=== PATIENT | female | born 1955 | race Caucasian/White ===

== ENCOUNTER 2017-08-06 06:27 | Observation (INO) | payer OTHER ==
[2017-08-01 15:53] VITALS: BMI 37.0
[~2017-08-06] VITALS: Ht 160 cm; Wt 96.3 kg
[2017-08-06] VITALS (12 sets, daily range): BP systolic 102–141; BP diastolic 66–78; PULSE 78–90; TEMP 36.3–36.9; O2SAT 90–94; Ht 160 cm; Wt 96.3 kg
[~2017-08-06 06:27] MED LIST: ASPI81TA28 PO; CARV6.25 PO; CEFAZOLIN 1000MG IV PUSH 5 ML IV SCH; CLINDAMYCIN 600 MG/54 ML D5W IV SCH; FURO-85 PO; LACTATED RINGER'S 1000ML 1,000 ML IV SCH; LEVO25TA5 PO; LISI-729 PO; PROPOFOL IV EMULSION 10 MG/ML 100 ML VIAL IV ONE; VANCOMYCIN 1GM/270ML NSS 270 ML IV SCH
[2017-08-06] MEDS ORDERED: BACITRACIN 50000 UNIT VIAL ONE (07:40)
[2017-08-06] MEDS ORDERED: BUPIVACAINE 0.5 % 5 MG/1 ML MPF 30ML VIAL ONE (07:40)
[2017-08-06] MEDS ORDERED: LIDOCAINE HCL 1% 20 ML VIAL ONE (07:40)
[2017-08-06] MEDS ORDERED: MIDAZOLAM HCL 1 MG/ML 2ML VIAL ONE (07:48)
[2017-08-06] MEDS ORDERED: FENTANYL CITRATE INJ 50 MCG/1 ML 2 ML VIAL ONE ×2 (07:48→10:04)
[2017-08-06] MEDS ORDERED: EpHEDrine SULFATE 50MG/5ML SYR ONE ×2 (07:55→11:04)
[2017-08-06] MEDS ORDERED: PHENYLEPHRINE 100MCG/ML 5ML SYR ONE ×2 (07:55→09:59)
[2017-08-06] MEDS ORDERED: PROPOFOL IV EMULSION 10 MG/ML 20 ML VIAL IV ONE (07:55)
[2017-08-06] MEDS ORDERED: LIDOCAINE HCL 2% 2 ML VIAL (20MG/ML) ONE (07:55)
--- NOTE | 2017-08-06 08:17 | History & Physical Bridge Note ---
H&P Re-Evaluation Bridge Note: I have examined the patient, reviewed the History & Physical and in the interval since the performance of the History & Physical I have noted the following changes of clinical significance: No changes noted
--- NOTE | 2017-08-06 12:16 | [facility] Post Operative Brief Note ---
Immediate Operative Summary Operative Date Aug 06, 2017. Pre-Operative Diagnosis nicm, lbbb, chronic systolic HF, NYHA Class III Post-Operative Diagnosis same Procedure(s) Performed biventricular ICD rate responsive with peripheral venogram Surgeon tristan loza Supervisor Warping Department Surgeon(s) none Estimated Blood Loss 10cc Findings see official report Fluids (cc crystalloids) 400cc Specimens none Drains none Anesthesia 4mg versed, 200mcg fentantyl, 1400mg propofol Complication(s) None Disposition PCU
--- NOTE | 2017-08-06 12:19 | Discharge Instructions ---
Discharge Instructions Date of Service Aug 06, 2017. Admission Reason for Admission: Cardiomyopathy W/Anesthesia Discharge Discharge Diagnosis / Problem: nicm, lbbb, chronic systolic hf-nyha class iii Discharge Goals Goal(s): Improve function Activity Recommendations Activity Limitations: as noted below Lifting Limitations: no more than 10 pounds (do not lift the left elbow over the left shoulder for 1 month; do not lift more than 10 pounds with the left arm for 2 weeks) Shower/Bathe: tomorrow Driving or Machine Use: resume 1 day after discharge . Instructions / Follow-Up Instructions / Follow-Up ACTIVITY RECOMMENDATIONS: * Do not raise affected arm over head for 4 weeks. SPECIAL CARE INSTRUCTIONS: * If bleeding occurs, apply direct pressure to area for 5 minutes. * Call your doctor if you have severe pain, fever, drainage or bleeding at site. * Keep dry for 24 hours. * Keep any scheduled doctor's appointment. * Implant Card - hand held device with website information given. SKIN IRRITATION: * You may experience some redness and/or swelling in the area where radiation was administered. If any skin irritation occurs, please contact your family physician. FOLLOW UP VISIT: Keep any scheduled doctor appointments. Current Hospital Diet Patient's current hospital diet: AHA Diet (Heart Healthy), Low Sodium Diet (2gm Na) Discharge Diet Recommended Diet: AHA Diet (Heart Healthy), Low Sodium Diet (2gm Na) Procedures Procedures Performed: biventricular ICD rate responsive with peripheral venogram Pending Studies Studies pending at discharge: no Medical Emergencies . Who to Call and When: Medical Emergencies: If at any time you feel your situation is an emergency, please call 911 immediately. . Non-Emergent Contact Non-Emergency issues call your: Auto Clocks Repairer . . "Provider Documentation" section prepared by Ashley Pacheco. . VTE Core Measure Inpt VTE Proph given/why not?: Caryl Fernandez
--- NOTE | 2017-08-06 12:19 | Anesthesiology Progress Note ---
Anesthesia Post Op Note Date & Time Aug 06, 2017 at 12:19 Vital Signs Pain Intensity: 0 Vital Signs Past 12 Hours Date Time Temp Pulse Resp B/P (MAP) Pulse Ox O2 Delivery O2 Flow Rate FiO2 08/06/17 12:10 90 16 120/71 (87) 95 Nasal Cannula 2 08/06/17 06:53 36.7 80 20 134/70 (91) 92 Room Air Notes Mental Status: alert / awake / arousable, participated in evaluation Pt Amnestic to Procedure: Yes Nausea / Vomiting: adequately controlled Pain: adequately controlled Airway Patency, RR, SpO2: stable & adequate BP & HR: stable & adequate Hydration State: stable & adequate Anesthetic Complications: no major complications apparent
--- NOTE | 2017-08-06 12:23 | Discharge Summary ---
Discharge Summary Date of Service Aug 06, 2017. Discharge Summary Admission Date: 08/06/2017 Discharge Date: Aug 07, 2017 Discharge Disposition: Home Principal Diagnosis: nicm Secondary Diagnoses/Problems: lbbb, chronic systolic HF, NYHA Class III, HTN, HLD Procedures: biventricular ICD with peripheral venogram Medication Reconciliation New Medications: Acetaminophen (Mapap) 325 Mg Tab 650 MG PO Q4H PRN for Mild pain (1-3 on pain scale), #60 TAB 1 Refill Continued Medications: Aspirin (Aspirin Ec) 81 Mg Tab 81 MG PO QAM Carvedilol (Coreg) 6.25 Mg Tab 6.25 MG PO QAM, TAB Furosemide (Lasix) 20 Mg Tab 20 MG PO QPM, TAB Levothyroxine Sodium (Levothyroxine Sodium) 25 Mcg Tab 1 TAB PO QAM for 30 Days, #30 TAB 5 Refills Lisinopril (Prinivil) 5 Mg Tab 5 MG PO QAM, TAB Admission Information Physical Exam (per Admitting): aaox3, NAD NC/AT, EOMI Supple, No JVD Nrl S1/S2, no murmur CTA b/l no w/r/r soft, nt/nd no edema b/l LE no focal deficits skin intact Hospital Course Pt admitted for elective BiVentricular ICD due to NICM, LBBB, and chronic systolic heart failure. Pt underwent procedure without any complications and monitored overnight. She was discharged home following morning in a stable condition Addendum 08/07/[address] Villela: Impression: 61-year-old female 1. Status post Medtronic biventricular pacemaker AICD on 08/06/17 2. History of nonischemic cardiomyopathy with moderate left ventricle systolic dysfunction, ejection fraction in the range of 30-34% on most recent testing in May 2017, in setting of left bundle branch block, and near card association functional class III systolic heart failure. Plan: Patient stable for discharge status post device. Patient schedule for device check 08/13/2017 9:00 AM [facility] [place] Follow up with Primary nurse general duty Dr Coronado, appointment to be arranged at time of device check. Total time spent on discharge = 30 minutes This includes examination of the patient, discharge planning, medication reconciliation, and communication with other providers. Discharge Instructions ACTIVITY RECOMMENDATIONS: * Do not raise affected arm over head for 4 weeks. SPECIAL CARE INSTRUCTIONS: * If bleeding occurs, apply direct pressure to area for 5 minutes. * Call your doctor if you have severe pain, fever, drainage or bleeding at site. * Keep dry for 24 hours. * Keep any scheduled doctor's appointment. * Implant Card - hand held device with website information given. SKIN IRRITATION: * You may experience some redness and/or swelling in the area where radiation was administered. If any skin irritation occurs, please contact your family physician. FOLLOW UP VISIT: Keep any scheduled doctor appointments.
[2017-08-06] MEDS ORDERED: ACETAMINOPHEN 325 MG TAB PO PRN (12:30)
[2017-08-06] MEDS ORDERED: ATROPINE SULFATE 0.1 MG/ML 5ML SYR IV PRN (12:30)
[2017-08-06] MEDS ORDERED: EpHEDrine SULFATE INJ 50 MG/ML AMP IV PRN (12:30)
[2017-08-06] MEDS ORDERED: IV FLUIDS COMPLETED PRN (13:45)
[2017-08-06] MEDS: OXYCODONE/ACETAMINOPHEN 5-325 TAB PO PRN ×2 (13:55→17:58)
--- NOTE | 2017-08-06 16:12 | OPERATIVE REPORT ---
DATE OF OPERATION: 08/06/2017 PREOPERATIVE DIAGNOSES: Nonischemic cardiomyopathy, left bundle branch block, chronic systolic heart failure, [place] Heart Association class 3. POSTOPERATIVE DIAGNOSIS: Same. SURGEON: Ashley Pacheco DO SANITATION INSPECTOR: None. ANESTHESIA: Monitored anesthetic care administered via anesthesiology. Total of 4 mg of Versed, 200 mcg of fentanyl and 1400 mg of propofol. IV FLUIDS: 400 mL. ANTIBIOTICS: 600 mL of clindamycin. IV CONTRAST: 40 mL. BLOOD LOSS: 10 mL COMPLICATIONS: None. CONDITION: Stable. URINE OUTPUT: Not applicable. SPECIMENS: None. FINDINGS: See below. DRAINS: None. INDICATIONS: This is a 61-year-old female with a past medical history of nonischemic cardiomyopathy, ejection fraction in November of this year was 25%. After starting medications, it did not really improved slightly. In May 2015, her echo with 30-34%, left bundle branch block, chronic systolic heart failure, [place] Heart Association class 3, and hyperlipidemia. Due to her nonischemic cardiomyopathy, left bundle branch block and significant heart failure, she was recommended a biventricular implantable cardiac defibrillator. CONSENT: Consent was obtained prior to going into the electrophysiology lab. The patient was informed of risks, benefits and alternatives to the procedure. Risks include but not limited to sudden cardiac , cardiac arrhythmias, cerebrovascular accident, myocardial infarction, injury to the blood vessels, chamber of the heart, bleeding, lungs, bleeding and infection. The patient understood these risks and agreed to the procedure as planned. Informed consent was obtained. DESCRIPTION OF THE PROCEDURE: The patient was brought into the electrophysiology lab in a fasting state. She was connected to continuous route clerk. A timeout was performed to ensure patient's identity and procedure correctly. She received prophylactic antibiotics prior to incision. She was prepped and draped over the left infraclavicular space in a normal surgical standard fashion. Monitored anesthetic care was given throughout the procedure for patient's comfort level of the anesthesiology. [place] precautions were maintained throughout the procedure. A 10 mL of 1% lidocaine, bupivacaine mixture were given in the left deltopectoral groove. Incision was made in left deltoid groove. Blunt dissection was performed down to identify the cephalic vein; however, none could be identified, so we tested to had a peripheral venogram. Using 10 mL of IV contrast diluted in 10 mL of saline followed by 20 mL flushed axillary vein was identified with a peripheral venogram. Axillary venous access was obtained on 2 different needlesticks. The guidewire was inserted without any resistance. In the more medial needlestick, an 8-Maltese sheath was inserted over the guidewire, the dilator was removed, a second guidewire was inserted through the sheath to allow for routine venous access. The sheath was removed, a 9.5-Maltese sheath was then inserted over one of the guidewires without any resistance. The guidewire and dilator were removed. The right ventricular defibrillator lead was then advanced into the right ventricle and positioned intrajugular apex under fluoroscopic time. There was adequate pacing and sensing thresholds and no diaphragmatic stimulation with high output pacing. The 9.5-Maltese sheath was peeled away and the lead was fixated to the pectoralis muscle using 0 silk suture. An 8-Maltese sheath was inserted over the retained guidewire without any resistance. The guidewire and dilator were removed. The right atrial pacing lead was advanced into right atrium, initially with a preformed J stylet of blue; however, that did not hold, it dislodged, so we then tried a haynes. It took a little bit for the haynes, given an extra length as well. Ultimately, we got the right atrial pacing lead into the right atrial appendage and we had adequate sensing and floor sensing and threshold testing, there was no diaphragmatic stimulation with high output pacing. The 8-Maltese sheath was peeled away and lead was fixated to the pectoralis muscle using 0 silk suture. We then set up to do the left ventricular pacing lead. A 9.5-Maltese sheath was inserted over very a guidewire that was in the more lateral stick through the axillary vein, without any resistance. The guidewire and dilator removed and an MPX Medtronic outer sheath coronary sinus sheath was advanced into the right atrium under fluoroscopic guidance. The guidewire and dilator removed and a coronary sinus Decapolar diagnostic catheter was then placed through the sheath. Then, right away, I was able to cannulate a bailout branch. We did do a venogram of this through the MPX outer sheath. I did try to advance the lead out into this, but when we did, we did not give any acceptable threshold capture, so this was all removed. I ultimately then did cannulate the true coronary sinus and the MPX sheath was advanced over the diagnostic Decapolar coronary sinus catheter and a peripheral venogram of the coronary sinus was performed and identified a nice posterolateral branch. Using initially Whisper wires, but ultimately a Luge wire, the branch was wired and the pacing lead was advanced over the wire out into the branch. There was adequate pacing and sensing thresholds from the more proximal region as opposed to the distal region post. The Luge wire was removed and a stylet was placed into the lead. Then the MPX sheath was split under fluoroscopic guidance followed then by the 9.5-Maltese sheath was peeled away. The lead was fixated to the pectoralis muscle using 0 silk suture. Of note, there was no diaphragmatic stimulation with high output pacing. A defibrillator pocket was then created using blunt dissection over the pectoralis muscle within the pectoralis fascia. The pocket was flushed with copious amounts of bacitracin saline wash and inspected for hemostasis. The defibrillator generator was then attached to the leads making sure that the pins were in appropriate position, passed the set screws, the set screws were all tightened. The defibrillator was then placed in the pocket, making sure that the leads were lying to place the device. Selene stat was placed in the pocket to help with any extra blood oozing. Then, the incision was closed in a 3-layer fashion using 2 interrupted layers of 2-0 Vicryl followed by a 4-0 Monocryl running stitch and Dermabond followed by a pressure dressing was applied. EQUIPMENT: 1. The defibrillator generator is a Medtronic Claria MRI Quad CRTD SureScan, [id number]. Serial #[id number]. 2. Right atrial lead - Medtronic 5076-52 cm. Serial #[id number]. 3. Right ventricular lead - Medtronic 6935M-62 cm, serial #[id number]. 4. Left ventricular lead - Medtronic 4598-88 cm, serial #[id number]. INTRAOPERATIVE TESTIN. Right atrial lead: P waves 5 millivolts, impedance 722 ohms, threshold 0.4 volts at 0.5 milliamps. 2. Right ventricular lead: R-wave 9.8 millivolts, impedance 956 ohms, threshold 0.4 volts at 0.5 milliamps. 3. Left ventricular lead: Programmed LV 38 to RV coil, impedance 509 ohms, threshold 2.2 volts at 5.6 milliamps. FINAL MEASUREMENTS THROUGH THE DEVICE: 1. Right atrial lead: P-wave 4.5 millivolts, impedance 456 ohms, threshold 0.75 volts at 0.4 milliseconds. 2. Right ventricular lead: R-wave 9.8 millivolts, impedance 513 ohms, threshold 0.5 volts at 0.4 milliseconds. 3. Left ventricular lead programmed LV3 to RV coil, impedance 399 ohms, threshold 2.25 volts at 1 milliamp. 4. The RV coil was 92, impedance of 92 ohms. FINAL PARAMETERS: 1. DDDR 60/130, right atrial and right ventricular amplitude 3.5 volts, pulse width 0.4 milliseconds, sensitivity 0.3 millivolts. 2. Left ventricular amplitude 4 volts, pulse width 1.0 milliseconds. 3. A VT monitor zone at 140 beats per minute with 32 detection intervals, a VT zone at 167 beats per minute with 24 detection intervals and a VF zone at 180 beats per minute with 30/40 detection intervals. IMPRESSION: Successful implantation of biventricular rate responsive implantable cardiac defibrillator secondary to nonischemic cardiomyopathy, left bundle branch block, chronic systolic heart failure, [place] Heart Association class 3. PLAN: Monitor patient overnight, 12-lead ECG, chest x-ray. She is not allowed to lift the left elbow over left shoulder for 1 month. She is not to lift more than 10 pounds with the left arm for 2 weeks. She can shower tomorrow. The pressure dressing can be removed tomorrow as well. She should continue her home medications. She will follow up in our [place] office with the device and wound check in 7-10 days. I attest to the content of the Intraoperative Record and any orders documented therein. Any exception s are noted below.
[2017-08-06] MEDS ORDERED: FUROSEMIDE 20 MG TAB PO SCH (17:00)
[2017-08-07 00:07] VITALS: BP 108/72; PULSE 87; TEMP 36.7; O2SAT 91
[2017-08-07] MEDS: OXYCODONE/ACETAMINOPHEN 5-325 TAB PO PRN ×3 (00:13→14:07)
[2017-08-07 04:49] VITALS: BP 119/82; PULSE 79; TEMP 36.7; O2SAT 93
[2017-08-07] MEDS ORDERED: LEVOTHYROXINE 25 MCG TAB PO SCH (06:00)
--- NOTE | 2017-08-07 07:49 | DIAGNOSTIC IMAGING REPORT ---
TWO VIEW CHEST CLINICAL HISTORY: Cardiac pacemaker implantation. Lead placement. FINDINGS: PA and lateral chest radiographs are obtained. No prior studies are available for comparison at the time of dictation. A 3-lead cardiac AICD has been placed and partially obscures the left lower chest. Leads project over the right atrial appendage, the right ventricle, and the coronary sinus. The heart is enlarged and there is atherosclerotic calcification of the thoracic aorta. The pulmonary vasculature is noncongested. Nonspecific interstitial thickening is noted. No airspace consolidation or pleural effusion is seen. There is no pneumothorax. The skeletal structures are osteopenic. The bony thorax appears intact. IMPRESSION: 1. Cardiomegaly and 3-lead AICD as above. There is no radiographic evidence of congestive failure. 2. No pneumothorax is seen post procedure. 3. No airspace consolidation or pleural effusion is identified. Electronically signed by: Gerald Villarreal M.D. 08/07/2017 7:47 AM Dictated Date/Time: 08/07/2017 7:46 AM
[2017-08-07 08:00] VITALS: BP 111/78; PULSE 78; TEMP 36.5; O2SAT 96
[2017-08-07] MEDS ORDERED: LISINOPRIL 5 MG TAB PO SCH (09:00)
[2017-08-07] MEDS ORDERED: CARVEDILOL 6.25 MG TAB PO SCH (09:00)
[2017-08-07] MEDS ORDERED: ASPIRIN 81 MG ECTAB PO SCH (09:00)
[2017-08-07 11:50] VITALS: BP 122/82; PULSE 83; TEMP 36.9; O2SAT 91
--- NOTE | 2017-08-07 13:06 | Cardiology Follow-Up ---
Subjective General Date of Service: Aug 07, 2017. Chief Complaint: follow up biventricular pacemaker , AICD Pt evaluation today including: conversation w/ patient, physical exam History of Present Illness The patient is a 61 year old female seen in cardiology follow up in coverage of Dr Pacheco with patient having undergone insertion of a Medtronic biventricular pacemaker AICD yesterday 08/06/17. The patient tolerated the procedure well. Telemetry was reviewed and she remained in sinus rhythm overnight with appropriate ventricular pacing. Her device check today reveals stable device function. Chest x-ray reveals appropriate lead placement and no evidence of pneumothorax. The patient is eager for discharge to home. She states her post procedure pain is minimal. Allergies Coded Allergies: Penicillins (Verified Allergy, Unknown, UNKNOWN; CHILD, 08/06/17) Social History Smoking Status: Never Smoker Hx Tobacco Use In Past Year?: No Hx Alcohol Use - Type And Amou: No Hx Substance Use - Type And Am: No Physical Exam Vital Signs Last Vital Signs Documentation Date Time Temp Pulse Resp B/P (MAP) Pulse Ox O2 Delivery O2 Flow Rate FiO2 08/07/17 12:00 Room Air 08/07/17 11:50 36.9 83 16 122/82 (95) 91 08/06/17 12:10 2 Physical Exam Constitutional: Level of Distress: NAD Head: normocephalic, atraumatic ENMT: TMs normal Neck: trachea midline, no masses Lungs: Auscultation: no wheezing, no rales/crackles, no rhonchi Cardiovascular: Heart Auscultation: RRR, no murmurs, no rubs, no gallops Abdomen: Inspection & Palpation: soft Extremities: no cyanosis, no edema, no varicosities Neurologic: Gait & Station: pertinent finding (no focal deficits) Additional Comments: Left infraclavicular pocket site is clean dry and intact, without erythema, without drainage. No evidence of hematoma. Assessment and Plan Assessment and Plan Impression: 61-year-old female 1. Status post Medtronic biventricular pacemaker AICD on 08/06/17 2. History of nonischemic cardiomyopathy with moderate left ventricle systolic dysfunction, ejection fraction in the range of 30-34% on most recent testing in May 2017, in setting of left bundle branch block, and near card association functional class III systolic heart failure. Plan: Patient stable for discharge status post device. Patient schedule for device check 08/13/2017 9:00 AM [facility] [place] Follow up with Primary slot machine mechanic Dr Coronado, appointment to be arranged at time of device check.
[2017-08-07] MEDS ORDERED: ACET-1047 PO (13:08)
[2017-08-07 13:36] VITALS: BP 122/82; PULSE 83; TEMP 36.9; O2SAT 91
== END 2017-08-07 14:16 | disposition home or self-care (01) ==
LOC: C.ACU 06:27 → C.2T 12:17 → ENRESERV 12:46
PROVIDERS: ADMIT Internal Medicine; ATTEND Internal Medicine
DX: I42.8 Other cardiomyopathies (principal); I44.7 Left bundle-branch block, unspecified; I50.22 Chronic systolic (congestive) heart failure; I11.0 Hypertensive heart disease with heart failure; E03.9 Hypothyroidism, unspecified; E78.5 Hyperlipidemia, unspecified; Z88.0 Allergy status to penicillin; Z90.710 Acquired absence of both cervix and uterus; Z79.899 Other long term (current) drug therapy; Z79.82 Long term (current) use of aspirin; E66.9 Obesity, unspecified; Z68.38 Body mass index [BMI] 38.0-38.9, adult